=== PATIENT | male | born 1935 | race Caucasian/White ===

== ENCOUNTER 2017-03-23 10:16 | Inpatient (IN) | payer OTHER ==
[~2017-03-23] VITALS: Ht 185.4 cm; Wt 86.3 kg
[2017-03-23] MEDS ORDERED: PROSCAR5 MG PO (10:41)
[2017-03-23] MEDS ORDERED: ASPIR 8181 MG PO (10:41)
[2017-03-23] MEDS ORDERED: COZAAR100 MG PO (10:41)
[2017-03-23] MEDS ORDERED: FLO4 PO (10:42)
[2017-03-23] MEDS ORDERED: NEURONTIN600 MG PO (10:43)
[2017-03-23] MEDS ORDERED: ACETAMINOPHEN &1 TA1 PO (10:46)
[2017-03-23 11:14] LABS: BASOPHIL % 0.2 % (0-2); PLATELET COUNT 275 x10^3mcL (130-400); RED CELL DISTRIBUTION WIDTH 13.2 % (11.5-14.5)
[2017-03-23 11:36] LABS: CARBON DIOXIDE 27.8 mmol/L (21-32); CHLORIDE SERUM 102 mmol/L (98-107); GLUCOSE SERUM 138 mg/dL (74-106); POTASSIUM SERUM 3.7 mmol/L (3.5-5.1); SODIUM SERUM 138 mmol/L (136-145)
[2017-03-23 11:47] LABS: ALKALINE PHOSPHATASE 64 U/L (46-116); ALT/SGPT 49 U/L (16-63); AST/SGOT 22 U/L (15-37); BILIRUBIN TOTAL 0.4 mg/dL (0.20-1.00); C REACTIVE PROTEIN 0.2 mg/dL (<=0.9); TOTAL PROTEIN, SERUM 6.4 g/dL (6.4-8.2)
[2017-03-23 11:48] LABS: CK-MB 0.6 ng/mL (0-3.6)
[2017-03-23 11:49] LABS: FREE T4 0.98 ng/dL (0.76-1.46); FREE THYROXINE INDEX 2.8 ug/dL (1.4-4.5); T4(THYROXINE) 7.1 ug/dL (4.7-13.3)
[2017-03-23 11:52] LABS: ALBUMIN 3.2 g/dL (3.4-5.0); T3 TOTAL 0.87 ng/mL
[2017-03-23 12:25] LABS: microscopic required? NO
[2017-03-23 12:36] LABS: UA SPECIFIC GRAVITY 1.025 (1.005-1.035); urine erythrocyte NEGATIVE (NEGATIVE)
[2017-03-23 14:43] LABS: ERYTHROCYTE SED RATE 18 mm/hr (0-20)
[2017-03-23] MEDS ORDERED: PROAIR HFA8.5 GM IH (15:06)
[2017-03-23 15:47] VITALS: BP 150/65
[2017-03-23 15:59] LABS: AMYLASE 48 U/L (25-115); CHOLESTEROL 144 mg/dL (<200); CHOLESTEROL/HDL RATIO 4.1; HDL CHOLESTEROL 35 mg/dL (40-60); LIPASE 180 IU/L (73-393); MAGNESIUM 2.2 mg/dL (1.8-2.4); PHOSPHOROUS 3.5 mg/dL (2.5-4.9)
[2017-03-23 16:00] LABS: TRIGLYCERIDES 514 mg/dL (<150)
[2017-03-23 17:05] VITALS: BP 150/65
[2017-03-23 17:21] VITALS: BP 150/65
[2017-03-23 20:48] VITALS: BP 124/48
[2017-03-24] VITALS (7 sets, daily range): BP systolic 117–142; BP diastolic 46–77
[2017-03-24 05:50] LABS: PLATELET COUNT 283 x10^3mcL (130-400); RED CELL DISTRIBUTION WIDTH 13.9 % (11.5-14.5)
[2017-03-24 05:57] LABS: CALCIUM 8.5 mg/dL (8.5-10.1); CHLORIDE SERUM 107 mmol/L (98-107); CREATININE SERUM 1.3 mg/dL (0.7-1.3); GLUCOSE SERUM 159 mg/dL (74-106); POTASSIUM SERUM 4.6 mmol/L (3.5-5.1); SODIUM SERUM 143 mmol/L (136-145)
[2017-03-24 06:05] LABS: BASOPHIL % 0 % (0-2)
[2017-03-24] MEDS ORDERED: LAC PO (12:40)
[2017-03-24] MEDS ORDERED: TRICOR48 M1 PO (13:50)
[2017-03-25 05:48] VITALS: BP 120/63
[2017-03-25 05:53] LABS: CALCIUM 8.7 mg/dL (8.5-10.1); CARBON DIOXIDE 28.3 mmol/L (21-32); CHLORIDE SERUM 110 mmol/L (98-107); GLUCOSE SERUM 155 mg/dL (74-106); POTASSIUM SERUM 4.7 mmol/L (3.5-5.1); SODIUM SERUM 145 mmol/L (136-145)
[2017-03-25 06:20] LABS: BASOPHIL % 0.1 % (0-2); PLATELET COUNT 251 x10^3mcL (130-400); RED CELL DISTRIBUTION WIDTH 14.2 % (11.5-14.5)
[2017-03-25 08:30] VITALS: BP 158/58
[2017-03-25 11:49] VITALS: BP 133/64
[2017-03-25] MEDS ORDERED: CLEOCIN HCL300 MG PO (13:26)
[2017-03-25] MEDS ORDERED: LEVAQUIN750 MG PO (13:26)
[2017-03-25] MEDS ORDERED: SYMBICORT1 AE3 INH (13:26)
[2017-03-25] MEDS ORDERED: MEDDP PO (13:26)
[2017-03-25] MEDS ORDERED: SPIRIVA18 MC1 INH (13:26)
[2017-03-25] MEDS ORDERED: LAC PO (13:26)
[2017-03-25] MEDS ORDERED: LIPITOR40 MG PO (15:22)
== END 2017-03-25 16:30 | disposition home health service (06) | DRG 190 ==
LOC: ED 10:16 → DU 14:59
PROVIDERS: Family Medicine; Specialist; ADMIT Student in an Organized Health Care Education/Training Program
DX: J44.1 Chronic obstructive pulmonary disease with (acute) exacerbation (principal); N17.0 Acute kidney failure with tubular necrosis; E44.0 Moderate protein-calorie malnutrition; E86.0 Dehydration; R73.03 Prediabetes; I10 Essential (primary) hypertension; N40.0 Benign prostatic hyperplasia without lower urinary tract symptoms; E78.1 Pure hyperglyceridemia; Z68.25 Body mass index [BMI] 25.0-25.9, adult; Z87.891 Personal history of nicotine dependence; Z85.828 Personal history of other malignant neoplasm of skin; Z66 Do not resuscitate
CPT/HCPCS: 36600; 82962; 83880; 84439; 85378; 90732; 94150; J1644; J1956; J2920; J2930; J3490; J7030; J7613; J7620; J7626; J7644; Q0092; Q9967